=== PATIENT | male | born 1980 | race Caucasian/White ===

== ENCOUNTER 2017-08-05 00:30 | Emergency (ER) | payer SELFPAY ==
[~2017-08-05] VITALS: Ht 175.3 cm; Wt 86.2 kg
[2017-08-05 00:33] VITALS: BP 155/86; Ht 175.3 cm; Wt 86.2 kg
== END 2017-08-05 06:46 | disposition home or self-care (01) ==
LOC: ED 00:30
DX: F22 Delusional disorders (principal)
CPT/HCPCS: 84439; G0480; J1630; J2060